=== PATIENT | female | born 1985 | race African-American/Black ===

== ENCOUNTER 2017-01-15 09:36 | Emergency (ER) | payer SELFPAY ==
[~2017-01-15] VITALS: Ht 165.1 cm; Wt 75.0 kg
[2017-01-15 12:14] VITALS: BP 132/87
== END 2017-01-15 12:29 | disposition home or self-care (01) ==
LOC: ER 10:46
DX: R05 Cough (principal); M32.9 Systemic lupus erythematosus, unspecified; F17.210 Nicotine dependence, cigarettes, uncomplicated; F12.10 Cannabis abuse, uncomplicated; Z71.6 Tobacco abuse counseling
CPT/HCPCS: 71020; 81025; 99284; 99406

== ENCOUNTER 2017-02-07 03:53 | Emergency (ER) | payer MEDICAID ==
[~2017-02-07] VITALS: Ht 170.2 cm; Wt 96.0 kg
[2017-02-07] MEDS ORDERED: IBUPROFEN 600MG TABLET PO ONE (08:30)
[2017-02-07 08:31] VITALS: BP 128/85
== END 2017-02-07 09:12 | disposition home or self-care (01) ==
LOC: ER 03:53
DX: S40.029A Contusion of unspecified upper arm, initial encounter (principal); M32.9 Systemic lupus erythematosus, unspecified; F17.200 Nicotine dependence, unspecified, uncomplicated; Y08.89XA Assault by other specified means, initial encounter; Y93.89 Activity, other specified; Y92.89 Other specified places as the place of occurrence of the external cause; Y99.8 Other external cause status; Z88.1 Allergy status to other antibiotic agents
CPT/HCPCS: 70450; 70486; 81025; 99284

== ENCOUNTER 2017-07-03 16:32 | Emergency (ER) | payer MEDICAID ==
[~2017-07-03] VITALS: Ht 170.2 cm; Wt 91.0 kg
[2017-07-03] MEDS ORDERED: SODIUM CHLORIDE 0.9% 1,000 ML IV ONE (17:04)
[2017-07-03 17:28] LABS: CHLORIDE 99 mEq/L (98-107)
[2017-07-03 17:30] LABS: HEMATOCRIT. 38.5 % (36.0-48.0); MEAN CORPUSCULAR HEMOGLOBIN 30.1 pg (28.0-32.0); MEAN CORPUSCULAR VOLUME 88.8 fL (81.0-99.0); MEAN PLATELET VOLUME 9.6 fl (7.4-10.4); PLATELET 252 x1000/uL (130-400); RED BLOOD CELL COUNT 4.33 mill/uL (4.2-5.4); RED CELL DISTRIBUTION WIDTH 13.3 % (11.6-14.6)
[2017-07-03 17:37] LABS: CARBON DIOXIDE 29 mEq/L (21-32)
[2017-07-03] MEDS ORDERED: MORPHINE SULFATE 4 MG/ML CPJ (NOT FOR IM USE) IV ONE ×2 (17:45→20:15)
[2017-07-03] MEDS ORDERED: ONDANSETRON HCL 4MG/2ML VIAL IV ONE (17:45)
[2017-07-03 17:53] LABS: PLATELET ESTIMATE NORMAL
[2017-07-03 18:03] LABS: CLARITY URINE CLEAR (CLEAR); COLOR URINE YELLOW (YELLOW); KETONES URINE NEGATIVE (NEGATIVE); LEUKOCYTE ESTERASE URINE 1+ (NEGATIVE); NITRITE URINE NEGATIVE (NEGATIVE); OCCULT BLOOD URINE 2+ (NEGATIVE); PH URINE 8.5 (4.5-8.0); PROTEIN URINE TRACE (NEGATIVE); SPECIFIC GRAVITY URINE 1.014 (1.005-1.030); UROBILINOGEN URINE 0.2 E.U./dL (0.2-1.0)
[2017-07-03] MEDS ORDERED: ACETAMINOPHEN 500MG TABLET ONE (20:23)
[2017-07-03] MEDS ORDERED: CEFTRIAXONE 1 G PREMIX 50 ML IV ONE (20:45)
[2017-07-03 21:15] VITALS: BP 116/68
== END 2017-07-03 21:50 | disposition home or self-care (01) ==
LOC: ER 16:53
DX: N12 Tubulo-interstitial nephritis, not specified as acute or chronic (principal); N28.1 Cyst of kidney, acquired; R39.15 Urgency of urination; M32.9 Systemic lupus erythematosus, unspecified; R16.0 Hepatomegaly, not elsewhere classified; N28.89 Other specified disorders of kidney and ureter; F17.210 Nicotine dependence, cigarettes, uncomplicated
CPT/HCPCS: 36415; 76700; 80053; 81001; 81025; 83690; 85025; 96361; 96365; 96375; 96376; 99285; J0696; J2270; J2405; J7030; Z7610

== ENCOUNTER 2019-12-18 18:23 | Emergency (ER) | payer MEDICAID ==
[~2019-12-18] VITALS: Ht 170.2 cm; Wt 85.0 kg
[2019-12-18] MEDS ORDERED: IBUPROFEN 600MG TABLET PO STA (19:53)
[2019-12-18 20:02] VITALS: BP 151/106
== END 2019-12-18 20:23 | disposition home or self-care (01) ==
LOC: ER 18:23
DX: S16.1XXA Strain of muscle, fascia and tendon at neck level, initial encounter (principal); M79.601 Pain in right arm; V43.62XA Car passenger injured in collision with other type car in traffic accident, initial encounter; Y93.9 Activity, unspecified; Y92.410 Unspecified street and highway as the place of occurrence of the external cause
CPT/HCPCS: 81025; 99284

== ENCOUNTER 2020-09-21 16:11 | Emergency (ER) | payer MEDICAID ==
[~2020-09-21] VITALS: Ht 170.2 cm; Wt 91.0 kg
[2020-09-21] MEDS ORDERED: SODIUM CHLORIDE 0.9% 1,000 ML IV ONE (16:45)
[2020-09-21 17:16] LABS: BASOPHILS % 1.5 % (0.0-2.0); EOSINOPHILS % 2.2 % (0.0-5.0); HEMATOCRIT. 38.4 % (36.0-48.0); HEMOGLOBIN. 12.9 g/dL (12.0-16.0); LYMPHOCYTES % 30.5 % (20.0-50.0); MEAN CORPUSCULAR HEMOGLOBIN 30.4 pg (28.0-32.0); MEAN CORPUSCULAR VOLUME 90.7 fL (81.0-99.0); MONOCYTES % 7.6 % (2.0-8.0); NEUTROPHILS % 58.2 % (40.0-76.0); PLATELET 215 x1000/uL (130-400); RED BLOOD CELL COUNT 4.23 mill/uL (4.2-5.4); RED CELL DISTRIBUTION WIDTH 13.8 % (11.6-14.6)
[2020-09-21 17:20] LABS: CHLORIDE 107 mEq/L (98-107)
[2020-09-21 17:29] LABS: HCG SCREEN NEGATIVE
[2020-09-21 19:00] VITALS: BP 152/101
[2020-09-21 19:23] LABS: CLARITY URINE TURBID (CLEAR); COLOR URINE RED (YELLOW); KETONES URINE NEGATIVE (NEGATIVE); LEUKOCYTE ESTERASE URINE 3+ (NEGATIVE); NITRITE URINE POSITIVE (NEGATIVE); OCCULT BLOOD URINE 3+ (NEGATIVE); PH URINE 8.5 (4.5-8.0); PROTEIN URINE 2+ (NEGATIVE); SPECIFIC GRAVITY URINE 1.019 (1.005-1.030); UROBILINOGEN URINE 0.2 E.U./dL (0.2-1.0)
[2020-09-21] MEDS ORDERED: CEFTRIAXONE 1 G PREMIX 50 ML IV ONE (19:30)
== END 2020-09-21 21:38 | disposition home or self-care (01) ==
LOC: ER 16:11
DX: N39.0 Urinary tract infection, site not specified (principal); R55 Syncope and collapse; Z88.1 Allergy status to other antibiotic agents; Z98.890 Other specified postprocedural states
CPT/HCPCS: 36415; 70450; 71045; 80053; 81003; 81025; 83690; 83880; 84484; 84703; 85025; 87086; 93005; 96360; 99285; J7030

== ENCOUNTER 2020-10-09 20:57 | Emergency (ER) | payer MEDICAID ==
[~2020-10-09] VITALS: Ht 170.2 cm; Wt 91.0 kg
[2020-10-09] MEDS ORDERED: ACETAMINOPHEN 325MG TABLET PO ONE (22:15)
[2020-10-09] MEDS ORDERED: TOPUD PO (22:55)
[2020-10-09] MEDS ORDERED: NAPR375T5 MT (22:55)
[2020-10-09 23:39] VITALS: BP 160/92
== END 2020-10-09 23:42 | disposition home or self-care (01) ==
LOC: ER 20:57
DX: M25.572 Pain in left ankle and joints of left foot (principal); I10 Essential (primary) hypertension; M32.9 Systemic lupus erythematosus, unspecified; F17.210 Nicotine dependence, cigarettes, uncomplicated; Z88.1 Allergy status to other antibiotic agents
CPT/HCPCS: 73610; 73630; 81025; 99284

== ENCOUNTER 2023-12-18 13:28 | Emergency (ER) | payer MEDICAID, OTHER ==
[~2023-12-18] VITALS: Ht 177.8 cm; Wt 105.0 kg
[~2023-12-18 13:28] MED LIST: NAPR375T5 MT; TOPUD PO
[2023-12-18 13:35] VITALS: O2SAT 100
[2023-12-18] MEDS ORDERED: ACET325T52 MT (16:17)
[2023-12-18 17:22] VITALS: BP 161/103; PULSE 85; RESP 19; TEMP 97.7
== END 2023-12-18 17:27 | disposition home or self-care (01) ==
LOC: ER 13:28
DX: S99.911A Unspecified injury of right ankle, initial encounter (principal); W18.39XA Other fall on same level, initial encounter; Z98.890 Other specified postprocedural states; Y93.89 Activity, other specified; Y92.89 Other specified places as the place of occurrence of the external cause; Y99.8 Other external cause status
CPT/HCPCS: 73610; 73630; 99284; Z7610